=== PATIENT | male | born 1985 | race Caucasian/White ===

== ENCOUNTER 2022-05-26 21:56 | Emergency (ER) | payer MEDICARE, MEDICAID | END 2022-05-26 23:30 | LOC: DL.ED 21:56 | DX: S00.83XA Contusion of other part of head, initial encounter (principal); S20.411A Abrasion of right back wall of thorax, initial encounter; S30.810A Abrasion of lower back and pelvis, initial encounter; Z91.011 Allergy to milk products; Z88.1 Allergy status to other antibiotic agents; Z79.82 Long term (current) use of aspirin; Z79.899 Other long term (current) drug therapy; Y04.2XXA Assault by strike against or bumped into by another person, initial encounter | CPT/HCPCS: 70450; 99282; 99283 ==